=== PATIENT | male | born 1980 | race Caucasian/White ===

== ENCOUNTER 2024-06-13 15:19 | Inpatient (IN) | payer OTHER ==
[2024-06-13 15:44] VITALS: BMI 23.1
[2024-06-13] MEDS ORDERED: DICYCLOMINE HCL 10 MG CAPSULE PO PRN (17:09)
[2024-06-13] MEDS ORDERED: MAGNESIUM HYDROX 2400MG/30ML ORAL SUSPENSION 30 ML CUP PO PRN (17:09)
[2024-06-13] MEDS ORDERED: MAG HYDROX/AL HYDROX/SIMETH 30 ML UNIT-DOSE CUP PO PRN (17:09)
[2024-06-13] MEDS ORDERED: ACETAMINOPHEN 325 MG TABLET (FP) PO PRN (17:09)
[2024-06-13] MEDS ORDERED: IBUPROFEN 600 MG TABLET (FP) PO PRN (17:09)
[2024-06-13] MEDS ORDERED: POLYETHYLENE GLYCOL (HEALTHYLAX) 3350 17 GM PACKET PO PRN (17:09)
[2024-06-13] MEDS ORDERED: guaiFENesin 600 MG TABLET.ER (FP) PO PRN (17:09)
[2024-06-13] MEDS ORDERED: LOPERAMIDE HCL 2 MG CAPSULE PO PRN (17:09)
[2024-06-13] MEDS ORDERED: BISMUTH SUBSALICYLATE 524 MG/30 ML PO PRN (17:09)
[2024-06-13] MEDS ORDERED: NALOXONE (NARCAN) HCL 4 MG/0.1 ML SPRAY NS PRN (17:09)
[2024-06-13] MEDS ORDERED: IBUPROFEN 400 MG TABLET (FP) PO PRN (17:09)
[2024-06-13] MEDS ORDERED: BENZOCAINE/MENTHOL (CHLORASEPTIC ) LOZENGE MM PRN (17:09)
[2024-06-13] MEDS ORDERED: BENZONATATE 200 MG CAPSULE PO PRN (17:09)
[2024-06-13] MEDS ORDERED: NALOXONE HCL 0.4 MG/ML VIAL IM PRN (17:09)
[2024-06-13] MEDS: LORazepam 2 MG/ML SDV VIAL IM ONE ×2 (20:13→22:41)
[2024-06-13] MEDS: FERROUS SO4 325 MG TABLET (FP) PO SCH (23:05)
[2024-06-13] MEDS: APIXABAN 5 MG TABLET PO SCH (23:05)
[2024-06-13] MEDS: MELATONIN 5 MG TABLETS PO SCH (23:06)
[2024-06-13] MEDS: OMEGA-3 ACID ETHYL ESTERS (FATTY-ACIDS) 1 GM CAPSULE (FP) PO SCH (23:06)
[2024-06-13] MEDS: SENNOSIDES/DOCUSATE COMBO (SENNA PLUS) TABLET (UD) PO SCH (23:06)
[2024-06-13] MEDS: diazePAM 5 MG TABLET PO SCH (23:07)
[2024-06-13] MEDS: THIAMINE 100 MG TABLET PO SCH (23:08)
[2024-06-13] MEDS: levETIRAcetam 500 MG TABLET (FP) PO SCH (23:09)
[2024-06-14] MEDS: hydrOXYzine PAMOATE 25 MG CAPSULE (FP) PO PRN (05:59)
[2024-06-14 09:16] LABS: POTASSIUM 3.9 mmol/L (3.5-5.1)
[2024-06-14 09:20] LABS: ALBUMIN 3.5 g/dl (3.4-5.0); BLOOD UREA NITROGEN 3.7 mg/dL (7-18); CALCIUM 8.7 mg/dL (8.5-10.1)
[2024-06-14 09:24] LABS: CREATININE 0.6 mg/dL (0.55-1.3)
[2024-06-14] MEDS: PRENATAL VITAMINS W/ FOLIC ACID TABLET (FP) PO SCH (09:32)
[2024-06-14] MEDS: METHOCARBAMOL 500 MG TABLET PO PRN (09:37)
[2024-06-14] MEDS: ATORVASTATIN CA 40 MG TABLET (FP) PO SCH (09:37)
[2024-06-14] MEDS: PANTOPRAZOLE 20 MG TABLET PO SCH (10:46)
[2024-06-14] MEDS: diazePAM 5 MG TABLET PO ONE (12:13)
[2024-06-14] MEDS: ONDANSETRON *ODT* 4 MG TABLET SL PRN (12:14)
[2024-06-14] MEDS: MAGNESIUM OXIDE 400 MG TABLET (FP) PO SCH (14:00)
[2024-06-14] MEDS: GABAPENTIN 100 MG CAPSULE PO SCH (14:00)
[2024-06-15] MEDS: diazePAM 5 MG TABLET PO SCH (05:26)
[2024-06-15] MEDS: LACTULOSE 20 GM/30 ML UDC (FOR ORAL USE ONLY) PO SCH (14:21)
[2024-06-16] MEDS: diazePAM 5 MG TABLET PO SCH (06:23)
[2024-06-16] MEDS: diazePAM 5 MG TABLET PO PRN (09:26)
[2024-06-16 12:32] VITALS: RESP 16
[2024-06-16] MEDS: ACAMPROSATE CALCIUM 333 MG TABLET.DR PO SCH (13:53)
[2024-06-17] MEDS: diazePAM 5 MG TABLET PO ONE (05:34)
[2024-06-17 09:23] VITALS: BP 132/93; PULSE 84; TEMP 98.9
== END 2024-06-17 09:45 | disposition home or self-care (01) | DRG 775 ==
LOC: YASAS 15:19 → Y6N 17:12
PROVIDERS: ADMIT Allergy & Immunology; ATTEND Surgery
PROC: HZ2ZZZZ Detoxification Services for Substance Abuse Treatment (ICD-10-PCS; principal; 2024-06-13)
DX: F10.230 Alcohol dependence with withdrawal, uncomplicated (principal); E72.20 Disorder of urea cycle metabolism, unspecified; E78.5 Hyperlipidemia, unspecified; G40.909 Epilepsy, unspecified, not intractable, without status epilepticus; K21.9 Gastro-esophageal reflux disease without esophagitis; Z86.718 Personal history of other venous thrombosis and embolism; Z79.01 Long term (current) use of anticoagulants
CPT/HCPCS: 36415; 80053; 80305; 80307; 82140; 82962; 86780; 93005; 93010; Q0162

== ENCOUNTER 2024-06-13 20:52 | Emergency (ER) | payer OTHER ==
[2024-06-13 21:08] VITALS: BMI 23.1
[2024-06-13] MEDS ORDERED: LIDOCAINE 4% PATCH TP ONE (21:44)
[2024-06-13] MEDS: LIDOCAINE 4% PATCH TP ONE (21:54)
[2024-06-13 22:08] LABS: BASO % 1.8 % (0-2.0); EOS % 2.3 % (0-4.5); HEMATOCRIT 29.8 % (35.4-49); HEMOGLOBIN 9.9 GM/dL (11.7-16.9); LYMPH % 30.2 % (8-40); MCH 30.2 pg (25.7-33.7); MCHC 33.3 g/dl (32.0-35.9); MEAN CELL VOLUME 90.7 fl (80-96); MEAN PLT VOLUME 7.4 fl (7.5-11.1); MONO % 8.3 % (3.8-10.2); NEUT % 57.4 % (42.8-82.8); PLATELET COUNT 50 10^3/uL (134-434); RBC 3.28 M/mm3 (4.00-5.60); RDW 18.5 % (11.9-15.9); WHITE BLOOD COUNT 2.1 K/mm3 (4.0-10.0)
[2024-06-13 22:29] LABS: CALCIUM 8.7 mg/dL (8.5-10.1)
[2024-06-13 22:30] LABS: ALBUMIN 3.7 g/dl (3.4-5.0); BLOOD UREA NITROGEN 4.5 mg/dL (7-18); MAGNESIUM 1.5 mg/dL (1.8-2.4)
[2024-06-13 22:33] LABS: CREATININE 0.6 mg/dL (0.55-1.3)
[2024-06-13 22:34] LABS: BILIRUBIN,TOTAL 0.6 mg/dL (0.2-1); TOT PROT 7.6 g/dl (6.4-8.2)
[2024-06-13] MEDS: MAGNESIUM 1GM/D5W - 1 GM/100 ML IVPB IVPB ONE (22:37)
[2024-06-13] MEDS ORDERED: MAGNESIUM 1GM/D5W - 1 GM/100 ML IVPB IVPB ONE (22:39)
[2024-06-13] MEDS ORDERED: levETIRAcetam 500 MG/5 ML INJECTION VIAL IVPB ONE (23:17)
[2024-06-13] MEDS: levETIRAcetam 500 MG/5 ML INJECTION VIAL IVPB ONE (23:21)
[2024-06-14 00:25] VITALS: BP 132/78; PULSE 90; RESP 16; TEMP 98.1
[2024-06-14] MEDS ORDERED: LIDOCAINE PATCH REMOVAL MC SCH (10:00)
== END 2024-06-14 00:48 | disposition home or self-care (01) ==
LOC: JER 20:52
PROC: 3E033GC Introduction of Other Therapeutic Substance into Peripheral Vein, Percutaneous Approach (ICD-10-PCS; principal; 2024-06-13)
PROC: 3E033GC Introduction of Other Therapeutic Substance into Peripheral Vein, Percutaneous Approach (ICD-10-PCS; 2024-06-13)
DX: G40.909 Epilepsy, unspecified, not intractable, without status epilepticus (principal); M54.50 Low back pain, unspecified
CPT/HCPCS: 36415; 80053; 80177; 83735; 85025; 93005; 93010; 99284-25

== ENCOUNTER 2024-11-02 12:34 | Inpatient (IN) | payer OTHER ==
[2024-11-02] MEDS ORDERED: ACETAMINOPHEN 325 MG TABLET (FP) PO PRN (13:27)
[2024-11-02] MEDS ORDERED: DICYCLOMINE HCL 10 MG CAPSULE PO PRN (13:27)
[2024-11-02] MEDS ORDERED: BISMUTH SUBSALICYLATE 524 MG/30 ML PO PRN (13:27)
[2024-11-02] MEDS ORDERED: IBUPROFEN 400 MG TABLET (FP) PO PRN (13:27)
[2024-11-02] MEDS ORDERED: BENZONATATE 200 MG CAPSULE PO PRN (13:27)
[2024-11-02] MEDS ORDERED: BENZOCAINE/MENTHOL (CHLORASEPTIC ) LOZENGE MM PRN (13:27)
[2024-11-02] MEDS ORDERED: LOPERAMIDE HCL 2 MG CAPSULE PO PRN (13:27)
[2024-11-02] MEDS ORDERED: POLYETHYLENE GLYCOL (HEALTHYLAX) 3350 17 GM PACKET PO PRN (13:27)
[2024-11-02] MEDS ORDERED: LORazepam 1 MG TABLET PO PRN (13:27)
[2024-11-02] MEDS ORDERED: NALOXONE (NARCAN) HCL 4 MG/0.1 ML SPRAY NS PRN (13:27)
[2024-11-02] MEDS ORDERED: MAGNESIUM HYDROX 2400MG/30ML ORAL SUSPENSION 30 ML CUP PO PRN (13:27)
[2024-11-02] MEDS ORDERED: guaiFENesin 600 MG TABLET.ER (FP) PO PRN (13:27)
[2024-11-02] MEDS ORDERED: IBUPROFEN 600 MG TABLET (FP) PO PRN (13:27)
[2024-11-02] MEDS: LORazepam 2 MG TABLET PO ONE (13:43)
[2024-11-02] MEDS ORDERED: LORazepam 2 MG/ML SDV VIAL ONE (13:43)
[2024-11-02] MEDS: LORazepam 2 MG/ML SDV VIAL IVPUSH ONE (16:33)
[2024-11-02] MEDS: PRENATAL VITAMINS W/ FOLIC ACID TABLET (FP) PO SCH (16:34)
[2024-11-02 16:57] VITALS: BMI 23.5
[2024-11-02] MEDS ORDERED: LORazepam 2 MG TABLET ONE (17:26)
[2024-11-02] MEDS: LORazepam 2 MG TABLET PO SCH (17:28)
[2024-11-02] MEDS: ACAMPROSATE CALCIUM 333 MG TABLET.DR PO SCH (18:21)
[2024-11-02] MEDS: THIAMINE 100 MG TABLET PO SCH (22:18)
[2024-11-02] MEDS: levETIRAcetam 500 MG TABLET (FP) PO SCH (22:18)
[2024-11-02] MEDS: APIXABAN 5 MG TABLET PO SCH (22:18)
[2024-11-02] MEDS: MELATONIN 5 MG TABLETS PO SCH (22:20)
[2024-11-02] MEDS: OMEGA-3 ACID ETHYL ESTERS (FATTY-ACIDS) 1 GM CAPSULE (FP) PO SCH (23:48)
[2024-11-03] MEDS: hydrOXYzine PAMOATE 25 MG CAPSULE (FP) PO PRN (05:49)
[2024-11-03] MEDS: ATORVASTATIN CA 40 MG TABLET (FP) PO SCH (10:23)
[2024-11-03] MEDS: METHOCARBAMOL 500 MG TABLET PO PRN (10:24)
[2024-11-03] MEDS: ACAMPROSATE CALCIUM 333 MG TABLET.DR PO SCH (10:24)
[2024-11-03 12:08] LABS: CHLORIDE 100 mmol/L (98-107); POTASSIUM 3.9 mmol/L (3.5-5.1); SODIUM 136 mmol/L (136-145)
[2024-11-03 12:09] LABS: HEMATOCRIT 33.7 % (35.4-49); HEMOGLOBIN 11.2 GM/dL (11.7-16.9); MCH 30.1 pg (25.7-33.7); MCHC 33.2 g/dl (32.0-35.9); MEAN CELL VOLUME 90.8 fl (80-96); MEAN PLT VOLUME 8.7 fl (7.5-11.1); PLATELET COUNT 112 10^3/uL (134-434); RBC 3.71 M/mm3 (4.00-5.60); RDW 18.3 % (11.9-15.9); WHITE BLOOD COUNT 3.9 K/mm3 (4.0-10.0)
[2024-11-03 12:12] LABS: ALBUMIN 4.2 g/dl (3.4-5.0); ANION GAP 9 mmol/L (4-13); BLOOD UREA NITROGEN 7.2 mg/dL (7-18); CALCIUM 9.5 mg/dL (8.5-10.1); CO2 28 mmol/L (21-32); GLUCOSE,RANDOM 113 mg/dL (74-106)
[2024-11-03 12:15] LABS: CREATININE 0.8 mg/dL (0.55-1.3); SGOT/AST 136 U/L (15-37); SGPT/ALT 51 U/L (13-61)
[2024-11-03 12:17] LABS: BILIRUBIN,TOTAL 0.8 mg/dL (0.2-1); TOT PROT 8.6 g/dl (6.4-8.2)
[2024-11-03 12:18] LABS: ALK PHOS 153 U/L (45-117)
[2024-11-03 13:06] LABS: HIV INTERPRETATION NEGATIVE (NEGATIVE)
[2024-11-03] MEDS: QUEtiapine FUMARATE 50 MG TABLET PO SCH (22:12)
[2024-11-04] MEDS: LORazepam 1 MG TABLET PO SCH (05:50)
[2024-11-04] MEDS: FLUoxetine HCL 20 MG CAPSULE PO SCH (10:07)
[2024-11-04] MEDS: HYDROCHLOROTHIAZIDE 25 MG TABLET (FP) PO SCH (11:55)
[2024-11-04] MEDS: MAG HYDROX/AL HYDROX/SIMETH 30 ML UNIT-DOSE CUP PO PRN (16:19)
[2024-11-05] MEDS ORDERED: LORazepam 0.5 MG TABLET PO PRN
[2024-11-05] MEDS: LORazepam 0.5 MG TABLET PO SCH (05:53)
[2024-11-05] MEDS: PANTOPRAZOLE 40 MG TABLET PO SCH (10:10)
[2024-11-05] MEDS: ONDANSETRON *ODT* 4 MG TABLET SL PRN (10:50)
[2024-11-05 17:36] VITALS: RESP 16
[2024-11-06] MEDS: LORazepam 0.5 MG TABLET PO ONE (05:46)
[2024-11-06 09:09] VITALS: BP 135/93; PULSE 98; TEMP 98.6
[2024-11-06] MEDS ORDERED: LORazepam 2 MG/ML SDV VIAL ONE (10:27)
== END 2024-11-06 09:50 | disposition home or self-care (01) | DRG 775 ==
LOC: YASAS 12:34 → Y6N 17:11
PROVIDERS: ADMIT Allergy & Immunology; ATTEND Allergy & Immunology
PROC: HZ2ZZZZ Detoxification Services for Substance Abuse Treatment (ICD-10-PCS; principal; 2024-11-02)
DX: F10.230 Alcohol dependence with withdrawal, uncomplicated (principal); F41.9 Anxiety disorder, unspecified; E78.5 Hyperlipidemia, unspecified; I10 Essential (primary) hypertension; K21.9 Gastro-esophageal reflux disease without esophagitis; R79.89 Other specified abnormal findings of blood chemistry; Z86.79 Personal history of other diseases of the circulatory system; Z86.718 Personal history of other venous thrombosis and embolism; Z79.01 Long term (current) use of anticoagulants
CPT/HCPCS: 36415; 80053; 80305; 80307; 82140; 85027; 86780; 86803; 87389; 93005; 93010; Q0162